=== PATIENT | male | born 1975 | race Caucasian/White ===

== ENCOUNTER → 2016-10-14 | Outpatient (CLI) | payer MEDICAID, OTHER ==
--- NOTE | 2016-10-14 17:30 | REP ---
Clinical: Pain . Technique: AP, lateral and coned-down views. Findings: Alignment and lordosis is maintained. The vertebral bodies including transverse process and spinous processes are intact and normal. There is no evidence for acute fracture / compression injury or subluxation. No significant degenerative change is noted. Impression: Normal lumbosacral spine radiograph series. Signed by Elliott Berry MD 10/14/2016 05:22 P
--- NOTE | 2016-10-14 17:32 | REP ---
Clinical: Pain . Technique: AP, lateral views of the cervical spine. Findings: Alignment and lordosis is maintained. There is no evidence for acute fracture / compression injury or subluxation. Minimal disc space narrowing at the C5-6 level cannot be excluded. No further significant degenerative changes are appreciated. Impression: Minimal disc space narrowing at the C5-6 level. Signed by Elliott Berry MD 10/14/2016 05:24 P
--- NOTE | 2016-10-15 08:09 | REP ---
Clinical: thoracic pain. Technique: AP, lateral, and swimmers views. Findings: Alignment and kyphosis is maintained. Vertebral bodies intact. No acute fracture / compression injury or subluxation. No degenerative changes. Paravertebral soft tissues are normal. Impression: Normal thoracic spine series. Signed by Elliott Berry MD 10/14/2016 05:20 P
== END ==
LOC: M LRY 16:44
PROVIDERS: ATTEND Chiropractor
DX: M50.31 Other cervical disc degeneration, high cervical region (principal); M99.01 Segmental and somatic dysfunction of cervical region; M51.37 Other intervertebral disc degeneration, lumbosacral region; M99.03 Segmental and somatic dysfunction of lumbar region

== ENCOUNTER → 2016-12-09 | Outpatient (CLI) | payer OTHER | LOC: M LRY 11:37 | PROVIDERS: ATTEND Family Medicine | DX: S67.10XA Crushing injury of unspecified finger(s), initial encounter (principal); Z53.9 Procedure and treatment not carried out, unspecified reason ==

== ENCOUNTER → 2016-12-09 | Outpatient (CLI) | payer OTHER ==
--- NOTE | 2016-12-09 12:25 | REP ---
LEFT THIRD DIGIT, FOUR VIEWS: There is no evidence of an acute fracture, dislocation or intrinsic bone disease. IMPRESSION: No fracture or dislocation. Signed by Zhang Ceja MD 12/09/2016 12:59 P
== END ==
LOC: M LRY 11:36
PROVIDERS: ATTEND Family Medicine
DX: S67.10XA Crushing injury of unspecified finger(s), initial encounter (principal); X58.XXXA Exposure to other specified factors, initial encounter; Y92.89 Other specified places as the place of occurrence of the external cause; Y93.89 Activity, other specified; Y99.8 Other external cause status

== ENCOUNTER → 2017-03-29 | Outpatient (CLI) | payer OTHER ==
--- NOTE | 2017-03-30 13:23 | REP ---
Right hand complete: 03/29/2017. Clinical history: Pain. Four views are provided. Comparison is to the right wrist series this date. Distal radius and ulna intact. Carpal bones and their joint spaces are without gross abnormality. There is soft tissue swelling over the dorsal aspect of the wrist, metacarpals, phalanges and their joints were intact. There is no fracture or subluxation. Impression: 1. No visible fracture, avulsion, subluxation or other acute bony finding. There is mild soft tissue swelling over the dorsal aspect of the wrist. Signed by Jin Chase MD 03/30/2017 07:09 P
--- NOTE | 2017-03-30 13:30 | REP ---
Right wrist complete: 03/29/2017. Clinical history: Right hand pain. Four views of the wrist were provided and compared to a hand series this date. Distal radius and ulna intact. Carpal bones and their joint spaces were preserved. There is no erosion, fracture, subluxation or focal bone lesion. Proximal metacarpals intact. There is minor soft tissue swelling dorsal aspect of the wrist. Impression: 1. No acute bony abnormality about the wrist. Minor soft tissue swelling dorsal aspect of the wrist. Signed by Jin Chase MD 03/30/2017 07:09 P
== END ==
LOC: M LRY 13:18
PROVIDERS: ATTEND Physician Assistant
DX: M79.641 Pain in right hand (principal)